=== PATIENT | female | born 1990 | race Caucasian/White ===

== ENCOUNTER 2018-03-18 14:30 | Emergency (ER) | payer OTHER, SELFPAY ==
[2018-03-18] MEDS ORDERED: Lorazepam 2 MG/ML VIAL ONE (14:36)
[2018-03-18] MEDS ORDERED: Dexamethasone 10 MG/ML VIAL ONE (15:21)
[2018-03-18] MEDS ORDERED: predniSONE 20 MG TAB ONE (16:01)
--- NOTE | 2018-03-25 18:24 | EKG ---
Test Reason : Blood Pressure : / mmHG Vent. Rate : 093 BPM Atrial Rate : 093 BPM P-R Int : 128 ms QRS Dur : 080 ms QT Int : 362 ms P-R-T Axes : 054 -06 030 degrees QTc Int : 450 ms Normal sinus rhythm RSR' or QR pattern in V1 suggests right ventricular conduction delay Nonspecific T wave abnormality Abnormal ECG Confirmed by TATA MORENO, MARTIN Mo ([id number]), editor city [place] CORTES ([id number]) on 03/25/2018 6:23:55 PM Referred By: Confirmed By:MARTIN PAYTON MD
== END 2018-03-18 16:35 | disposition home or self-care (01) ==
LOC: ERS 14:30
DX: T78.1XXA Other adverse food reactions, not elsewhere classified, initial encounter (principal); I10 Essential (primary) hypertension; F90.9 Attention-deficit hyperactivity disorder, unspecified type; Z79.899 Other long term (current) drug therapy
CPT/HCPCS: 93005; 94760; 96361; 96374; 96375; J1100; J2060; J7506